=== PATIENT | male | born 1940 | race Two or more races ===

== ENCOUNTER → 2016-06-25 | Outpatient (CLI) | payer OTHER ==
[~2016-06-25] MED LIST: GADOBUTROL 10 ML VIAL IVP ONE
== END ==
LOC: FIMAGING 10:07
PROVIDERS: ATTEND Internal Medicine
DX: E78.2 Mixed hyperlipidemia (principal); G62.9 Polyneuropathy, unspecified; R41.9 Unspecified symptoms and signs involving cognitive functions and awareness; Z41.3 Encounter for ear piercing; Z82.49 Family history of ischemic heart disease and other diseases of the circulatory system; Z53.29 Procedure and treatment not carried out because of patient's decision for other reasons
CPT/HCPCS: A9585

== ENCOUNTER 2016-07-10 11:24 | Outpatient (CLI) | payer OTHER ==
[2016-07-10] MEDS ORDERED: GADOBUTROL 10 ML VIAL IVP ONE (12:02)
[2016-07-10] MEDS ORDERED: MIDAZOLAM 2 MG/2 ML VIAL ONE ×2 (13:12→13:13)
[2016-07-10] MEDS ORDERED: fentaNYL 100 MCG/2 ML INJ ONE (13:12)
[2016-07-10] MEDS ORDERED: FLUMAZENIL 0.5 MG/5 ML MDV IVP ONE (13:14)
[2016-07-10] MEDS ORDERED: NALOXONE HCL 0.4 MG/ML INJ ONE (13:14)
== END 2016-07-10 15:00 | disposition home or self-care (01) ==
LOC: FIMAGING 11:24
PROVIDERS: ATTEND Internal Medicine
DX: G31.9 Degenerative disease of nervous system, unspecified (principal); F40.240 Claustrophobia; G62.9 Polyneuropathy, unspecified; R41.3 Other amnesia; Z82.49 Family history of ischemic heart disease and other diseases of the circulatory system
CPT/HCPCS: 70553; A9585; J2250; J3010; J2310

== ENCOUNTER → 2017-02-07 | Outpatient (CLI) | payer OTHER | LOC: FIMAGING 09:59 | PROVIDERS: ATTEND Internal Medicine | DX: I35.8 Other nonrheumatic aortic valve disorders (principal); J44.9 Chronic obstructive pulmonary disease, unspecified; Z87.891 Personal history of nicotine dependence ==